=== PATIENT | female | born 1990 | race American Indian/Alaskan Native ===

== ENCOUNTER 2016-09-18 13:55 | Emergency (ER) | payer OTHER ==
[2016-09-18 14:13] VITALS: BMI 26.6
--- NOTE | 2016-09-18 14:22 | C.PDOC ---
History Of Present Illness 26 yr old female presents to the ER for evaluation of irregular periods. Patient states she gets her period every 4-5 months and has not been able to conceive in the last 8 years and would like to know if she is . Patient reports LMP was 4-5 months ago and 2 weeks ago she started having mild cramping. Patient states she thought her period might be starting but it didn' t. Patient denies fever, chills, chest pain, SOB, nausea, vomiting, abdominal pain, diarrhea, constipation, dysuria, weakness or numbness. Time Seen by Provider: 09/18/16 14:19 Chief Complaint (Nursing): Medical Clearance History Per: Patient History/Exam Limitations: no limitations Onset/Duration Of Symptoms: Persistent Past Medical History Reviewed: Historical Data, Nursing Documentation, Vital Signs Vital Signs: Last Vital Signs Temp 98.4 F 09/18/16 15:14 Pulse 68 09/18/16 15:14 Resp 18 09/18/16 15:14 BP 118/80 09/18/16 15:14 Pulse Ox 100 09/18/16 16:20 Family History: States: No Known Family Hx - Social History Hx Alcohol Use: No Hx Substance Use: No - Immunization History Hx Tetanus Toxoid Vaccination: No Hx Influenza Vaccination: No Hx Pneumococcal Vaccination: No Review Of Systems Except As Marked, All Systems Reviewed And Found Negative. Constitutional: Negative for: Fever, Chills Cardiovascular: Negative for: Chest Pain Respiratory: Negative for: Shortness of Breath Gastrointestinal: Negative for: Nausea, Vomiting, Abdominal Pain, Diarrhea, Constipation Genitourinary: Negative for: Dysuria Neurological: Negative for: Weakness, Numbness Physical Exam - Physical Exam Appears: Well, Non-toxic, No Acute Distress Skin: Warm, Dry, No Rash Head: Atraumatic, Normacephalic Eye(s): bilateral: Normal Inspection, PERRL, EOMI Oral Mucosa: Moist Neck: Normal, Normal ROM, Supple Chest: Symmetrical, No Tenderness Cardiovascular: Rhythm Regular, No Murmur Respiratory: Normal Breath Sounds, No Rales, No Rhonchi, No Stridor, No Wheezing Gastrointestinal/Abdominal: Normal Exam, Soft, No Tenderness, No Guarding, No Rebound Extremity: Normal ROM, No Swelling Neurological/Psych: Oriented x3, Normal Speech, Normal Motor ED Course And Treatment O2 Sat by Pulse Oximetry: 100 Progress Note: HCG was ordered and patient tested negative for . Urinalysis showed negative for UTI. Patient is advised to follow up with OBGYN for further evaluation. Medical Decision Making Medical Decision Making: PLAN: * HCG Urine * Urinalysis Disposition Counseled Patient/Family Regarding: Studies Performed, Diagnosis, Need For Followup, Rx Given - Disposition Referrals: [facility] [Outside] [facility] [Outside] Blair Jimenez [Staff Provider] - Disposition: HOME/ ROUTINE Disposition Time: 15:07 Condition: STABLE Additional Instructions: FOLLOW UP WITH [facility] [facility] [facility] FOR RE-EVALUATION OF IRREGULAR PERIODS. IF ANY NEW CONCERNING SYMPTOMS DEVELOP RETURN TO ED. Forms: General Discharge Instructions - Clinical Impression Clinical Impression: Menses, irregular - PA / [employer] / Resident Statement MD/DO has reviewed & agrees with the documentation as recorded. - Scribe Statement The provider has reviewed the documentation as recorded by the Scribe Maribell August All medical record entries made by the Scribe were at my direction and personally dictated by me. I have reviewed the chart and agree that the record accurately reflects my personal performance of the history, physical exam, medical decision making, and the department course for this patient. I have also personally directed, reviewed, and agree with the discharge instructions and disposition.
[2016-09-18 14:56] LABS: RBC URINE 3 /hpf (0-3); URINE BILIRUBIN NEGATIVE (NEGATIVE); URINE BLOOD NEGATIVE (NEGATIVE); URINE COLOR Yellow (YELLOW); URINE GLUCOSE (UA) NORMAL (Normal); URINE KETONE NEGATIVE (NEGATIVE); URINE LEUKOCYTE ESTERASE NEG Leu/uL (Negative); URINE PROTEIN NEGATIVE (NEGATIVE); URINE UROBILINOGEN NORMAL mg/dL (0.2-1.0); WBC URINE 1 /hpf (0-5)
[2016-09-18 15:15] VITALS: BP 118/80; PULSE 68; RESP 18; TEMP 98.4
[2016-09-18 16:18] VITALS: O2SAT 100
== END 2016-09-18 15:25 | disposition home or self-care (01) ==
LOC: C.ER 13:55
DX: N92.5 Other specified irregular menstruation (principal); Z32.02 Encounter for pregnancy test, result negative